=== PATIENT | male | born 1980 | race Caucasian/White ===

== ENCOUNTER 2016-12-15 12:10 | Emergency (ER) | payer OTHER ==
[2016-12-15 12:23] VITALS: BMI 25.7
[2016-12-15 12:40] VITALS: TEMP 97.9
[2016-12-15 12:55] LABS: BASOPHIL 0.5 % (0-2.0); EOSINOPHIL 0.9 % (0-4.5); MCH 29.8 pg (25.7-33.7); MCHC 34.9 g/dl (32.0-35.9); MEAN CELL VOLUME 85.2 fl (80-96); MEAN PLT VOLUME 9.4 fl (7.5-11.1); NEUTROPHILS 58.6 % (42.8-82.8); PLATELET COUNT 227 K/MM3 (134-434); RDW 12.1 % (11.9-15.9); WHITE BLOOD COUNT 8.8 K/mm3 (4.0-10.8)
[2016-12-15 13:19] LABS: CPK(DFH) 352 IU/L (38-174)
[2016-12-15 13:20] LABS: ALK PHOS 45 U/L (32-92); ANION GAP 14 (8-16); BILIRUBIN,TOTAL 1.1 mg/dl (0.2-1.0); CALCIUM 9.9 mg/dl (8.4-10.2); CO2 21 mmol/L (22-28); GLUCOSE,RANDOM 195 mg/dl (74-106); SGOT/AST 38 U/L (10-42); SGPT/ALT 29 U/L (10-40); TOT PROT 7.6 g/dl (6.4-8.3)
[2016-12-15 13:22] LABS: COCKROFT - GAULT NT
--- NOTE | 2016-12-15 14:08 | PDOC ---
History of Present Illness <Elbert Melton - Last Filed: 12/15/16 14:15> - General History Source: Patient, Spouse Exam Limitations: No Limitations - History of Present Illness Initial Comments: 12/15/16 14:45 CHIEF COMPLAINT: Rapid heartbeat and shortness of breath with dizziness HISTORY OF PRESENT ILLNESS: Patient is a 36-year-old man who recently returned from his family vacation to [place] with his and children. He was home today for the first day doing lots of things around the house to get caught up, and he felt a palpitation of his heart. He went to lay down and started to think about his friend who had of heart disease, and he became increasingly anxious and concerned about his heart. His states he started breathing very heavily, and he started having tingling and spasms in the fingers of both hands. EMS was called and he came to the emergency department where he was very anxious and tachycardic. He was tearful regarding concern that he might of a heart attack and leave his children father list. After speaking to him and telling him that he is okay, he calmed down and his heart rate came down with verbal reassurance. He denies any chest pain. He did feel his heart beating earlier, but there was no chest pain or shortness of breath at that time. Family history is positive for valvular heart disease from rheumatic fever, but no history of coronary heart disease. Patient denies hypertension, no diabetes , no cigarette smoking, no hyperlipidemia. REVIEW OF SYSTEMS: GENERAL/CONSTITUTIONAL: No fever or chills. No weakness. No weight change. HEAD, EYES, EARS, NOSE AND THROAT: No change in vision. No ear pain or discharge. No sore throat. CARDIOVASCULAR: No chest pain, but positive transient shortness of breath and hyperventilation with finger tingling and spasms. RESPIRATORY: No cough, wheezing, or hemoptysis. GASTROINTESTINAL: No nausea, vomiting, diarrhea or constipation. No rectal bleeding. GENITOURINARY: No dysuria, frequency, or change in urination. MUSCULOSKELETAL: No joint or muscle swelling or pain. No neck or back pain. No calf pain or swelling. SKIN AND BREASTS: No rash or easy bruising. NEUROLOGIC: No headache, vertigo, loss of consciousness, or loss of sensation. PSYCHIATRIC: No depression or anxiety. ENDOCRINE: No increased thirst. No abnormal weight change. HEMATOLOGIC/LYMPHATIC: No anemia, easy bleeding, or history of blood clots. ALLERGIC/IMMUNOLOGIC: No hives or skin allergy. No latex allergy. <Darshan Sheppard - Last Filed: 12/15/16 14:54> - General Chief Complaint: Shortness of Breath Stated Complaint: SOB Time Seen by Provider: 12/15/16 12:17 Past History <Elbert Melton - Last Filed: 12/15/16 14:15> - Past Medical History Diabetes: No HTN: No Hypercholesterolemia: No Other medical history: DENIES - Family Disease History Family Disease History: Heart Disease: Father (valvular heart disease) - Psycho/Social/Smoking Cessation Hx Anxiety: No Suicidal Ideation: No Smoking History: Never smoked Hx Alcohol Use: Yes Drug/Substance Use Hx: No Substance Use Type: Alcohol <Darshan Sheppard - Last Filed: 12/15/16 14:54> - Past Medical History Allergies/Adverse Reactions: Allergies Allergy/AdvReac Type Severity Reaction Status Date / Time No Known Allergies Allergy Verified 12/15/16 12:12 Home Medications: Ambulatory Orders NK [No Known Home Medication] 12/15/16 *Physical Exam - Vital Signs Last Vital Signs Temp Pulse Resp BP Pulse Ox 97.9 F 88 16 122/84 100 12/15/16 12:39 12/15/16 14:06 12/15/16 14:06 12/15/16 14:06 12/15/16 14:06 <Elbert Melton - Last Filed: 12/15/16 14:15> - Vital Signs Last Vital Signs Temp Pulse Resp BP Pulse Ox 97.9 F 88 16 122/84 100 12/15/16 12:39 12/15/16 14:06 12/15/16 14:06 12/15/16 14:06 12/15/16 14:06 - Physical Exam Comments: 12/15/16 14:49 GENERAL: The patient is awake, alert, and fully oriented, in no acute distress. Initially, he was anxious and hyperventilating, but that resolved quickly with verbal reassurance. His heart rate returned to normal. HEAD: Normal with no signs of trauma. EYES: Pupils equal, round and reactive to light, extraocular movements intact, sclera anicteric, conjunctiva clear. ENT: Ears normal, nares patent, oropharynx clear without exudates. Moist mucous membranes. NECK: Normal range of motion, supple without lymphadenopathy, JVD, or masses. LUNGS: Breath sounds equal, clear to auscultation bilaterally. No wheezes, and no crackles. HEART: Regular rate and rhythm, normal S1 and S2 without murmur, rub or gallop. ABDOMEN: Soft, nontender, normoactive bowel sounds. No guarding, no rebound. No masses. EXTREMITIES: Normal range of motion, no edema. No clubbing or cyanosis. No cords, erythema, or tenderness. NEUROLOGICAL: Cranial nerves II through XII grossly intact. Normal speech, normal gait. PSYCH: Normal mood, normal affect. SKIN: Warm, Dry, normal turgor, no rashes or lesions noted. <Darshan Sheppard S - Last Filed: 12/15/16 14:54> Heart Score/ECG Review - ECG Intrepretation Comment:: 12/15/16 14:30 Twelve-lead EKG demonstrates sinus tachycardia at a rate of 113 bpm. There are premature atrial and ventricular beats. The axis is normal. The intervals are normal [place], borderline QRS at 100 ms, and normal QT interval. There is an incomplete right bundle branch block pattern. There is no old EKG for comparison. Impression: Sinus tachycardia with occasional premature atrial and ventricular beats with incomplete right bundle branch block. 12/15/16 14:36 Twelve-lead EKG was repeated. The rhythm is normal sinus rhythm with sinus arrhythmia at 82 bpm. The axis is normal. The intervals are normal. Her is a borderline right bundle branch block. There is nonspecific ST abnormality throughout all the leads. This is consistent with early repolarization. <Darshan Sheppard S - Last Filed: 12/15/16 14:54> ED Treatment Course - LABORATORY CBC & Chemistry Diagram: 12/15/16 12:30 12/15/16 12:30 - ADDITIONAL ORDERS Additional order review: Laboratory Results 12/15/16 12/15/16 12:30 12:30 Sodium 136 Potassium 3.4 L Chloride 101 Carbon Dioxide 21 L Anion Gap 14 BUN 15 Creatinine 1.0 Creat Clearance w eGFR > 60 Random Glucose 195 H Calcium 9.9 Total Bilirubin 1.1 H AST 38 ALT 29 Alkaline Phosphatase 45 Creatine Kinase 352 H Total Protein 7.6 Albumin 5.0 12/15/16 12:30 RBC 5.54 MCV 85.2 MCHC 34.9 RDW 12.1 MPV 9.4 Neutrophils % 58.6 Lymphocytes % 32.0 Monocytes % 8.0 Eosinophils % 0.9 Basophils % 0.5 - RADIOLOGY Radiology Studies Ordered: 12/15/16 14:15 CHEST PA & LAT Impression: No acute pathology Reported by Reinier Weiss <Elbert Melton - Last Filed: 12/15/16 14:15> - LABORATORY CBC & Chemistry Diagram: 12/15/16 12:30 12/15/16 12:30 - ADDITIONAL ORDERS Additional order review: Laboratory Results 12/15/16 12/15/16 12:30 12:30 Sodium 136 Potassium 3.4 L Chloride 101 Carbon Dioxide 21 L Anion Gap 14 BUN 15 Creatinine 1.0 Creat Clearance w eGFR > 60 Random Glucose 195 H Calcium 9.9 Total Bilirubin 1.1 H AST 38 ALT 29 Alkaline Phosphatase 45 Creatine Kinase 352 H Total Protein 7.6 Albumin 5.0 12/15/16 12:30 RBC 5.54 MCV 85.2 MCHC 34.9 RDW 12.1 MPV 9.4 Neutrophils % 58.6 Lymphocytes % 32.0 Monocytes % 8.0 Eosinophils % 0.9 Basophils % 0.5 - RADIOLOGY Radiology Studies Ordered: Category Date Time Status CHEST PA & LAT [RAD] Stat Radiology 12/15/16 12:41 Completed <Darshan Sheppard - Last Filed: 12/15/16 14:54> Medical Decision Making - Medical Decision Making 12/15/16 14:50 Patient is a healthy 36-year-old man who presents with an episode of palpitations. He went to lie down and then started thinking about his heart and became increasingly anxious, leading to hyperventilation with tingling and spasms in his hands. He has had a prior history of episodes of anxiety and similar symptoms. Here in the ED, he calmed down with verbal reassurance. Physical examination was unremarkable other than initial tachycardia and hypertension which resolved. Initial EKG showed tachycardia, but that also resolved and repeat EKG was unremarkable. Laboratory workup was notable for hyperglycemia and normal cardiac enzymes. Repeat fingerstick glucose at the bedside without treatment was 90. Patient states he had just eaten prior to coming to the ED with symptoms. After observation in the ED, patient was feeling back to normal. All work up has been negative. The total CK is elevated, but the CK-MB index is unremarkable. Laboratory Tests 12/15/16 12/15/16 12/15/16 12:30 12:30 12:30 WBC 8.8 RBC 5.54 Hgb 16.5 Hct 47.3 MCV 85.2 MCHC 34.9 RDW 12.1 Plt Count 227 MPV 9.4 Neutrophils % 58.6 Lymphocytes % 32.0 Monocytes % 8.0 Eosinophils % 0.9 Basophils % 0.5 Sodium 136 Potassium 3.4 L Chloride 101 Carbon Dioxide 21 L Anion Gap 14 BUN 15 Creatinine 1.0 Creat Clearance w eGFR > 60 Random Glucose 195 H Calcium 9.9 Total Bilirubin 1.1 H AST 38 ALT 29 Alkaline Phosphatase 45 Creatine Kinase 352 H CK-MB (CK-2) CK-MB (CK-2) Rel Index 1.2 Troponin I < 0.03 L Total Protein 7.6 Albumin 5.0 12/15/16 12:30 WBC RBC Hgb Hct MCV MCHC RDW Plt Count MPV Neutrophils % Lymphocytes % Monocytes % Eosinophils % Basophils % Sodium Potassium Chloride Carbon Dioxide Anion Gap BUN Creatinine Creat Clearance w eGFR Random Glucose Calcium Total Bilirubin AST ALT Alkaline Phosphatase Creatine Kinase CK-MB (CK-2) 4.3 H CK-MB (CK-2) Rel Index Troponin I Total Protein Albumin Impression: Palpitations and hyperventilation secondary to anxiety. No evidence of acute coronary disease. Patient is stable for discharge. <Darshan Sheppard - Last Filed: 12/15/16 14:54> *DC/Admit/Observation/Transfer - Attestations Scribe Attestion: 12/15/16 14:16 Documentation prepared by Elbert Melton, acting as medical customer service representative for Darshan Sheppard MD <Elbert Melton - Last Filed: 12/15/16 14:15> - Discharge Dispostion Admit: No <Darshan Sheppard - Last Filed: 12/15/16 14:54> Diagnosis at time of Disposition: Heart palpitations - Discharge Dispostion Disposition: HOME Condition at time of disposition: Improved - Referrals Referrals: Dennis Long [Primary Care Provider] - - Patient Instructions Printed Discharge Instructions: DI for Palpitations Additional Instructions: Today you were evaluated for palpitations and heavy breathing. Your examination and your blood tests were all normal. The most likely explanation is a stress reaction. Follow-up with your primary care physician. Return to the emergency department for any severe or progressive symptoms.
[2016-12-15 14:13] LABS: TROPONIN I (DFP) < 0.03 ng/ml (0.03-0.50)
[2016-12-15] MEDS ORDERED: HEMOQUE TEST 1 EACH EACH ONE (14:36)
[2016-12-15 14:40] VITALS: BP 127/85; PULSE 89
--- NOTE | 2016-12-15 16:06 | EKG ---
Test Reason : Blood Pressure : / mmHG Vent. Rate : 117 BPM Atrial Rate : 117 BPM P-R Int : 140 ms QRS Dur : 096 ms QT Int : 328 ms P-R-T Axes : 058 014 073 degrees QTc Int : 457 ms SINUS TACHYCARDIA WITH OCCASIONAL PREMATURE VENTRICULAR COMPLEXES INCOMPLETE RIGHT BUNDLE BRANCH BLOCK BORDERLINE ECG WHEN COMPARED WITH ECG OF 15-DEC-2016 12:15, PREMATURE SUPRAVENTRICULAR COMPLEXES ARE NO LONGER PRESENT Confirmed by HARMONY DOWNING, VALERIE ([id number]) on 12/15/2016 4:06:10 PM Referred By: ANSLEY ROSARIO Confirmed By:VALERIE ANTUNEZ MD
--- NOTE | 2016-12-15 16:07 | EKG ---
Test Reason : Blood Pressure : / mmHG Vent. Rate : 113 BPM Atrial Rate : 113 BPM P-R Int : 142 ms QRS Dur : 100 ms QT Int : 328 ms P-R-T Axes : 067 003 069 degrees QTc Int : 449 ms SINUS TACHYCARDIA WITH PREMATURE SUPRAVENTRICULAR COMPLEXES INCOMPLETE RIGHT BUNDLE BRANCH BLOCK BORDERLINE ECG NO PREVIOUS ECGS AVAILABLE Confirmed by VALERIE ANTUNEZ MD ([id number]) on 12/15/2016 4:06:30 PM Referred By: ANSLEY ROSARIO Confirmed By:VALERIE ANTUNEZ MD
--- NOTE | 2016-12-16 13:01 | EKG ---
Test Reason : Blood Pressure : / mmHG Vent. Rate : 082 BPM Atrial Rate : 082 BPM P-R Int : 148 ms QRS Dur : 092 ms QT Int : 344 ms P-R-T Axes : 038 -01 065 degrees QTc Int : 401 ms SINUS RHYTHM WITH SINUS ARRHYTHMIA INCOMPLETE RIGHT BUNDLE BRANCH BLOCK NONSPECIFIC T WAVE ABNORMALITY ABNORMAL ECG WHEN COMPARED WITH ECG OF 15-DEC-2016 12:17, PREMATURE VENTRICULAR COMPLEXES ARE NO LONGER PRESENT Confirmed by HARMONY DOWNING, VALERIE ([id number]) on 12/16/2016 1:01:02 PM Referred By: ANSLEY ROSARIO Confirmed By:VALERIE ANTUNEZ MD
== END 2016-12-15 14:59 | disposition home or self-care (01) ==
LOC: FER 12:10
DX: R00.2 Palpitations (principal)
CPT/HCPCS: 36415; 71020-TC; 80053; 82550; 82553; 84484; 85025; 93005; 93010; 99284-25

== ENCOUNTER 2020-10-07 09:30 | Emergency (ER) | payer OTHER ==
[2020-10-07 09:48] VITALS: BP 156/86; TEMP 98.2; BMI 23.3
[2020-10-07] MEDS ORDERED: LIDOCAINE 5% TOPICAL PATCH TP ONE (10:01)
[2020-10-07] MEDS ORDERED: LIDOCAINE 5% TOPICAL PATCH ONE (10:02)
[2020-10-07 10:35] VITALS: PULSE 82
[2020-10-07] MEDS ORDERED: LIDOCAINE PATCH REMOVAL MC SCH (22:00)
== END 2020-10-07 10:37 | disposition home or self-care (01) ==
LOC: FER 09:30
DX: S20.219A Contusion of unspecified front wall of thorax, initial encounter (principal)
CPT/HCPCS: 71046-TC-FY; 71101-TC-LT-FY; 99284-25